=== PATIENT | female | born 1970 | race Caucasian/White ===

== ENCOUNTER 2020-01-28 08:59 | Emergency (ER) | payer BC, OTHER ==
--- NOTE | 2020-01-28 10:23 | RAD ---
Chest one view HISTORY: Fever. FINDINGS: No comparison. Cardiac silhouette is unremarkable. Pulmonary vasculature within normal limi ts. Mediastinum is midline. No lobar consolidation or evidence of pneumothorax. IMPRESSION : No active cardiopulmonary abnormalities are demonstrated.
[2020-01-28] MEDS ORDERED: Ondansetron ODT 4 MG TAB ONE (10:27)
== END 2020-01-28 11:17 | disposition home or self-care (01) ==
LOC: MADERS 08:59
DX: U07.1 COVID-19 (principal); J20.8 Acute bronchitis due to other specified organisms
CPT/HCPCS: 71045; 87635; 87804; Q0162; U0003